=== PATIENT | female | born 1950 | race Caucasian/White ===

== ENCOUNTER 2020-04-18 10:08 | Inpatient (IN) | payer OTHER ==
[2020-04-17 09:49] VITALS: BMI 34.9
[2020-04-18] MEDS ORDERED: BUPIVACAINE LIPOSOME/PF (EXPAREL) 266 MG/20 ML VIAL ONE (11:03)
[2020-04-18] MEDS ORDERED: MIDAZOLAM HCL 2 MG/2 ML SINGLE DOSE VIAL ONE ×2 (11:10)
[2020-04-18] MEDS ORDERED: BENZOIN/ALOE VERA/STORAX/TOLU 58 ML BOTTLE ONE (11:33)
[2020-04-18] MEDS ORDERED: EPHEDRINE SULFATE/0.9% NACL/PF 50 MG/10 ML SYRINGE NR ONE (12:46)
[2020-04-18] MEDS ORDERED: PROPOFOL 20 ML ONE ×3 (13:12→14:42)
[2020-04-18] MEDS ORDERED: VANCOMYCIN 1,000 MG VIAL (RESTRICTED TO ID ONLY) ONE (15:06)
[2020-04-18] MEDS ORDERED: ceFAZolin SODIUM 1 GM VIAL ONE ×3 (15:07)
[2020-04-18] MEDS ORDERED: DEXAMETHASONE SOD PHOSPHATE 4 MG/1 ML VIAL ONE (15:26)
[2020-04-18] MEDS ORDERED: ONDANSETRON 4 MG/2 ML VIAL ONE (15:26)
[2020-04-18] MEDS ORDERED: TRANEXAMIC ACID 1000 MG/10 ML VIAL ONE ×2 (15:26)
[2020-04-18] MEDS ORDERED: MAGNESIUM HYDROX 2400MG/30ML ORAL SUSPENSION 30 ML CUP PO PRN (15:49)
[2020-04-18] MEDS ORDERED: IBUPROFEN 400 MG TABLET (FP) PO PRN (15:57)
[2020-04-18] MEDS ORDERED: oxyCODONE HCL 5 MG TABLET PO PRN (15:57)
[2020-04-18] MEDS ORDERED: HYDROmorphone HCL 0.5 MG/0.5 ML SYRINGE ONE ×2 (15:58→16:47)
[2020-04-18] MEDS ORDERED: LACTATED RINGERS SOLUTION 1,000 ML IV SCH (16:00)
[2020-04-18] MEDS: HYDROmorphone HCL CARPU-JECT 1 MG/1 ML DISP.SYRIN IVPUSH PRN ×2 (16:03→16:50)
[2020-04-18] MEDS: ONDANSETRON 4 MG/2 ML VIAL IVPUSH PRN ×2 (16:04→21:58)
[2020-04-18] MEDS ORDERED: ACETAMINOPHEN INJECTION 100 ML IVPB ONE (16:18)
[2020-04-18] MEDS: HYDROmorphone HCl 2 MG/ML VIAL IVPUSH PRN ×2 (16:20→17:00)
[2020-04-18] MEDS ORDERED: ACETAMINOPHEN 1000 MG/100 ML VIAL (NON FORMULARY) IVPB ONE ×2 (16:25)
[2020-04-18] MEDS: oxyCODONE HCL 5 MG TABLET PO PRN ×2 (18:39→21:44)
[2020-04-18] MEDS: ACETAMINOPHEN 500 MG TABLET (FP) PO PRN (19:33)
[2020-04-18] MEDS: lamoTRIgine 100 MG TABLET PO SCH (21:44)
[2020-04-18] MEDS: CEFAZOLIN 2 GM/D5W 2 GM/50 ML ML IVPB SCH (21:44)
[2020-04-18] MEDS: ASPIRIN COATED 81 MG TABLET.EC PO SCH (21:44)
[2020-04-18] MEDS: SERTRALINE HCL 50 MG TABLET (FP) PO SCH (21:44)
[2020-04-18] MEDS: SENNOSIDES/DOCUSATE COMBO (SENNA PLUS) TABLET (UD) PO SCH (21:44)
[2020-04-18] MEDS ORDERED: HYDROmorphone HCl 2 MG/ML VIAL IVPB ONE (23:00)
[2020-04-19] MEDS: oxyCODONE HCL 5 MG TABLET PO PRN ×5 (02:08→16:32)
[2020-04-19] MEDS: CEFAZOLIN 2 GM/D5W 2 GM/50 ML ML IVPB SCH ×2 (03:07→09:36)
[2020-04-19] MEDS: ACETAMINOPHEN 500 MG TABLET (FP) PO PRN (06:50)
[2020-04-19 07:38] LABS: HEMATOCRIT 38.5 % (32.4-45.2); HEMOGLOBIN 12.5 GM/dl (10.7-15.3); MCH 26.5 pg (25.7-33.7); MCHC 32.6 g/dl (32.0-36.0); MEAN CELL VOLUME 81.3 fl (80-96); PLATELET COUNT 206 K/MM3 (134-434); RBC 4.73 M/mm3 (3.60-5.2); RDW 13.8 % (11.6-15.6); WHITE BLOOD COUNT 6.8 K/mm3 (4.0-10.8)
[2020-04-19 07:50] LABS: CALCIUM 8.7 mg/dl (8.5-10); CREATININE 0.9 mg/dl (0.55-1.3); POTASSIUM 3.8 mmol/L (3.5-5.1)
[2020-04-19] MEDS: CELECOXIB 200 MG CAPSULE PO SCH (09:36)
[2020-04-19] MEDS: HYDROCHLOROTHIAZIDE 25 MG TABLET (FP) PO SCH (09:36)
[2020-04-19] MEDS: ASPIRIN COATED 81 MG TABLET.EC PO SCH ×2 (09:36→21:41)
[2020-04-19] MEDS: PANTOPRAZOLE 40 MG TABLET PO SCH (10:07)
[2020-04-19] MEDS: metoPROLOL SUCCINATE 25 MG TAB.SR.24H (FP) PO SCH (10:07)
[2020-04-19] MEDS: SENNOSIDES/DOCUSATE COMBO (SENNA PLUS) TABLET (UD) PO SCH ×2 (10:07→21:41)
[2020-04-19] MEDS ORDERED: ACETAMINOPHEN 1000 MG/100 ML VIAL (NON FORMULARY) IVPB ONE (12:30)
[2020-04-19] MEDS ORDERED: ACETAMINOPHEN 1000 MG/100 ML VIAL (NON FORMULARY) IVPB PRN (18:14)
[2020-04-19] MEDS: ZOLPIDEM TARTRATE 5 MG TABLET PO PRN (21:41)
[2020-04-19] MEDS: lamoTRIgine 100 MG TABLET PO SCH (21:41)
[2020-04-19] MEDS: SERTRALINE HCL 50 MG TABLET (FP) PO SCH (21:41)
[2020-04-19] MEDS: KETOROLAC TROMETHAMINE 30 MG/1 ML VIAL IVPB PRN (22:19)
[2020-04-20] MEDS: oxyCODONE HCL 5 MG TABLET PO PRN ×3 (00:16→23:07)
[2020-04-20 07:39] LABS: HEMATOCRIT 36.7 % (32.4-45.2); HEMOGLOBIN 11.3 GM/dl (10.7-15.3); MCH 25.8 pg (25.7-33.7); MCHC 30.9 g/dl (32.0-36.0); MEAN CELL VOLUME 83.4 fl (80-96); MEAN PLT VOLUME 7.9 fl (7.5-11.1); PLATELET COUNT 193 K/MM3 (134-434); WHITE BLOOD COUNT 6.7 K/mm3 (4.0-10.8)
[2020-04-20] MEDS: KETOROLAC TROMETHAMINE 30 MG/1 ML VIAL IVPB PRN ×2 (09:51→17:37)
[2020-04-20] MEDS: CELECOXIB 200 MG CAPSULE PO SCH (09:53)
[2020-04-20] MEDS: SENNOSIDES/DOCUSATE COMBO (SENNA PLUS) TABLET (UD) PO SCH ×2 (09:53→21:19)
[2020-04-20] MEDS: ASPIRIN COATED 81 MG TABLET.EC PO SCH ×2 (09:53→21:19)
[2020-04-20] MEDS: PANTOPRAZOLE 40 MG TABLET PO SCH (09:54)
[2020-04-20] MEDS: HYDROCHLOROTHIAZIDE 25 MG TABLET (FP) PO SCH (09:55)
[2020-04-20] MEDS: metoPROLOL SUCCINATE 25 MG TAB.SR.24H (FP) PO SCH (09:55)
[2020-04-20] MEDS: ONDANSETRON 4 MG/2 ML VIAL IVPUSH PRN (18:47)
[2020-04-20] MEDS: lamoTRIgine 100 MG TABLET PO SCH (21:19)
[2020-04-20] MEDS: SERTRALINE HCL 50 MG TABLET (FP) PO SCH (21:19)
[2020-04-20] MEDS: MAG HYDROX/AL HYDROX/SIMETH 30 ML UNIT-DOSE CUP PO PRN (21:41)
[2020-04-20] MEDS: ZOLPIDEM TARTRATE 5 MG TABLET PO PRN (23:13)
[2020-04-21] MEDS: KETOROLAC TROMETHAMINE 30 MG/1 ML VIAL IVPB PRN ×2 (01:10→09:49)
[2020-04-21] MEDS: ONDANSETRON 4 MG/2 ML VIAL IVPUSH PRN (08:28)
[2020-04-21] MEDS: MAG HYDROX/AL HYDROX/SIMETH 30 ML UNIT-DOSE CUP PO PRN (08:28)
[2020-04-21] MEDS: ASPIRIN COATED 81 MG TABLET.EC PO SCH (09:50)
[2020-04-21] MEDS: CELECOXIB 200 MG CAPSULE PO SCH (09:50)
[2020-04-21] MEDS: metoPROLOL SUCCINATE 25 MG TAB.SR.24H (FP) PO SCH (09:53)
[2020-04-21] MEDS: HYDROCHLOROTHIAZIDE 25 MG TABLET (FP) PO SCH (09:53)
[2020-04-21] MEDS: SENNOSIDES/DOCUSATE COMBO (SENNA PLUS) TABLET (UD) PO SCH (09:55)
[2020-04-21] MEDS: PANTOPRAZOLE 40 MG TABLET PO SCH (09:55)
[2020-04-21 12:11] VITALS: BP 112/62; PULSE 85; TEMP 98.6
[2020-04-21] MEDS: oxyCODONE HCL 5 MG TABLET PO PRN (13:24)
== END 2020-04-21 13:48 | disposition home or self-care (01) | DRG 470 ==
LOC: FM/S 10:08
PROVIDERS: ADMIT Orthopaedic Surgery Orthopaedic Surgery of the Spine; ATTEND Orthopaedic Surgery Orthopaedic Surgery of the Spine
PROC: 0SRD0J9 Replacement of Left Knee Joint with Synthetic Substitute, Cemented, Open Approach (ICD-10-PCS; principal; 2020-04-18 13:00)
DX: M17.12 Unilateral primary osteoarthritis, left knee (principal); I10 Essential (primary) hypertension; E78.5 Hyperlipidemia, unspecified; K21.9 Gastro-esophageal reflux disease without esophagitis; F41.8 Other specified anxiety disorders
CPT/HCPCS: 36415; 73560-TC-LT-FY; 80048; 85027; 86850; 86900; 86901; 88304-TC; 88311-TC; 94760; 97010-GP; 97116-GP; 97163-GP; J0131

== ENCOUNTER 2020-08-08 08:00 | Inpatient (IN) | payer OTHER ==
[2020-08-10 15:50] VITALS: BMI 34.9
[2020-08-15] MEDS ORDERED: LOCK ITEM NR ONE ×2 (06:33→22:08)
[2020-08-15] MEDS ORDERED: MIDAZOLAM HCL 2 MG/2 ML SINGLE DOSE VIAL ONE (07:08)
[2020-08-15] MEDS ORDERED: BUPIVACAINE LIPOSOME/PF (EXPAREL) 266 MG/20 ML VIAL ONE (07:09)
[2020-08-15] MEDS ORDERED: SODIUM CHLORIDE 0.9% P/F 10 ML VIAL IJ ONE (07:09)
[2020-08-15] MEDS ORDERED: ePHEDrine SULFATE 50 MG/1 ML AMPULE ONE (07:55)
[2020-08-15] MEDS ORDERED: PROPOFOL 20 ML ONE ×5 (07:56→10:24)
[2020-08-15] MEDS ORDERED: EPHEDRINE SULFATE/0.9% NACL/PF 50 MG/10 ML SYRINGE NR ONE (08:32)
[2020-08-15] MEDS ORDERED: BENZOIN/ALOE VERA/STORAX/TOLU 58 ML BOTTLE ONE (10:32)
[2020-08-15] MEDS ORDERED: MAG HYDROX/AL HYDROX/SIMETH 30 ML UNIT-DOSE CUP PO PRN (11:27)
[2020-08-15] MEDS ORDERED: MAGNESIUM HYDROX 2400MG/30ML ORAL SUSPENSION 30 ML CUP PO PRN (11:27)
[2020-08-15] MEDS ORDERED: ONDANSETRON 4 MG/2 ML VIAL IVPUSH PRN (11:27)
[2020-08-15] MEDS ORDERED: LACTATED RINGERS SOLUTION 1,000 ML IV SCH (11:30)
[2020-08-15] MEDS ORDERED: HYDROmorphone HCL CARPU-JECT 1 MG/1 ML DISP.SYRIN IVPUSH PRN (11:33)
[2020-08-15] MEDS ORDERED: oxyCODONE HCL 5 MG TABLET PO PRN ×2 (11:33→21:43)
[2020-08-15] MEDS: ACETAMINOPHEN 1000 MG/100 ML VIAL (NON FORMULARY) IVPB ONE (11:40)
[2020-08-15] MEDS ORDERED: HYDROmorphone HCL/PF 1 MG/ML VIAL IVPUSH ONE (12:15)
[2020-08-15] MEDS ORDERED: diazePAM CARPU-JECT 10 MG/2 ML DISP.SYRIN ONE (12:23)
[2020-08-15] MEDS: diazePAM CARPU-JECT 10 MG/2 ML DISP.SYRIN IVPUSH ONE (12:28)
[2020-08-15] MEDS: oxyCODONE HCL 5 MG TABLET PO PRN ×3 (15:07→21:30)
[2020-08-15] MEDS ORDERED: ACETAMINOPHEN WITH CODEINE 300MG/30MG TABLET PO PRN (15:08)
[2020-08-15] MEDS: CEFAZOLIN 2 GM/D5W 2 GM/50 ML ML IVPB SCH (17:14)
[2020-08-15] MEDS ORDERED: ACETAMINOPHEN INJECTION 100 ML IVPB ONE (17:21)
[2020-08-15] MEDS ORDERED: ACETAMINOPHEN 1000 MG/100 ML VIAL (NON FORMULARY) IVPB ONE ×2 (17:25→17:30)
[2020-08-15] MEDS: ACETAMINOPHEN 325 MG TABLET (FP) PO SCH (17:26)
[2020-08-15] MEDS: ASPIRIN COATED 81 MG TABLET.EC PO SCH (21:43)
[2020-08-15] MEDS: SENNOSIDES/DOCUSATE COMBO (SENNA PLUS) TABLET (UD) PO SCH (21:43)
[2020-08-15] MEDS: SERTRALINE HCL 50 MG TABLET (FP) PO SCH (21:43)
[2020-08-15] MEDS: lamoTRIgine 100 MG TABLET PO SCH (21:44)
[2020-08-15] MEDS ORDERED: PATIENT'S OWN MEDICATION (NON-FORMULARY) (Zolpidem Tartrate [Ambien] 10 MG Tablet) PO SCH (22:00)
[2020-08-15] MEDS ORDERED: PATIENT'S OWN MEDICATION (NON-FORMULARY) (Sertraline Hcl [Sertraline Hcl] 100 MG Tablet) PO SCH (22:00)
[2020-08-15] MEDS: oxyCODONE HCL 10 MG SUSTAINED ACTING TABLET PO SCH (22:19)
[2020-08-15] MEDS: ZOLPIDEM TARTRATE 5 MG TABLET PO PRN (22:21)
[2020-08-16] MEDS: oxyCODONE HCL 5 MG TABLET PO PRN ×4 (00:34→15:01)
[2020-08-16] MEDS: ACETAMINOPHEN 325 MG TABLET (FP) PO SCH ×5 (05:53→23:43)
[2020-08-16] MEDS: CEFAZOLIN 2 GM/D5W 2 GM/50 ML ML IVPB SCH ×2 (05:54)
[2020-08-16 08:17] LABS: CALCIUM 8.5 mg/dl (8.5-10); CREATININE 0.7 mg/dl (0.55-1.3)
[2020-08-16 08:27] LABS: HEMATOCRIT 37.3 % (32.4-45.2); HEMOGLOBIN 12.2 GM/dl (10.7-15.3); MCH 26.2 pg (25.7-33.7); MCHC 32.7 g/dl (32.0-36.0); MEAN CELL VOLUME 80.1 fl (80-96); MEAN PLT VOLUME 7.8 fl (7.5-11.1); PLATELET COUNT 241 K/MM3 (134-434); RBC 4.66 M/mm3 (3.60-5.2); RDW 13.4 % (11.6-15.6)
[2020-08-16] MEDS ORDERED: PANTOPRAZOLE 40 MG TABLET PO SCH (10:00)
[2020-08-16] MEDS: CELECOXIB 200 MG CAPSULE PO SCH (10:47)
[2020-08-16] MEDS: ASPIRIN COATED 81 MG TABLET.EC PO SCH ×2 (10:47→21:26)
[2020-08-16] MEDS: PANTOPRAZOLE 40 MG TABLET PO SCH (10:48)
[2020-08-16] MEDS: metoPROLOL SUCCINATE 25 MG TAB.SR.24H (FP) PO SCH (10:48)
[2020-08-16] MEDS: HYDROCHLOROTHIAZIDE 25 MG TABLET (FP) PO SCH (10:48)
[2020-08-16] MEDS: SENNOSIDES/DOCUSATE COMBO (SENNA PLUS) TABLET (UD) PO SCH ×2 (10:48→21:27)
[2020-08-16] MEDS: oxyCODONE HCL 10 MG SUSTAINED ACTING TABLET PO SCH ×2 (10:52→21:27)
[2020-08-16] MEDS ORDERED: KETOROLAC TROMETHAMINE 30 MG/1 ML VIAL IVPUSH ONE (18:00)
[2020-08-16] MEDS: diazePAM CARPU-JECT 10 MG/2 ML DISP.SYRIN IVPUSH ONE (19:27)
[2020-08-16] MEDS: ACETAMINOPHEN 1000 MG/100 ML VIAL (NON FORMULARY) IVPB ONE (19:27)
[2020-08-16] MEDS: SERTRALINE HCL 50 MG TABLET (FP) PO SCH (21:26)
[2020-08-16] MEDS: lamoTRIgine 100 MG TABLET PO SCH (21:26)
[2020-08-16] MEDS: ZOLPIDEM TARTRATE 5 MG TABLET PO PRN (23:42)
[2020-08-17] MEDS: ACETAMINOPHEN 325 MG TABLET (FP) PO SCH ×3 (05:54→18:33)
[2020-08-17] MEDS: oxyCODONE HCL 5 MG TABLET PO PRN ×2 (05:55→09:21)
[2020-08-17 07:55] LABS: HEMATOCRIT 32.9 % (32.4-45.2); HEMOGLOBIN 10.5 GM/dl (10.7-15.3); MCH 26.3 pg (25.7-33.7); PLATELET COUNT 193 K/MM3 (134-434); RBC 4.01 M/mm3 (3.60-5.2); RDW 13.8 % (11.6-15.6); WHITE BLOOD COUNT 6.9 K/mm3 (4.0-10.8)
[2020-08-17] MEDS: SENNOSIDES/DOCUSATE COMBO (SENNA PLUS) TABLET (UD) PO SCH ×2 (09:18→21:04)
[2020-08-17] MEDS: ASPIRIN COATED 81 MG TABLET.EC PO SCH ×2 (09:18→21:03)
[2020-08-17] MEDS: CELECOXIB 200 MG CAPSULE PO SCH (09:19)
[2020-08-17] MEDS: PANTOPRAZOLE 40 MG TABLET PO SCH (09:19)
[2020-08-17] MEDS: metoPROLOL SUCCINATE 25 MG TAB.SR.24H (FP) PO SCH (09:24)
[2020-08-17] MEDS: oxyCODONE HCL 10 MG SUSTAINED ACTING TABLET PO SCH ×2 (09:24→21:02)
[2020-08-17] MEDS: HYDROCHLOROTHIAZIDE 25 MG TABLET (FP) PO SCH (09:24)
[2020-08-17] MEDS ORDERED: KETOROLAC TROMETHAMINE 30 MG/1 ML VIAL IVPUSH ONE (12:00)
[2020-08-17] MEDS: SERTRALINE HCL 50 MG TABLET (FP) PO SCH (21:03)
[2020-08-17] MEDS: lamoTRIgine 100 MG TABLET PO SCH (21:04)
[2020-08-17] MEDS ORDERED: KETOROLAC TROMETHAMINE 15 MG/ML VIAL IVPUSH ONE (22:00)
[2020-08-17] MEDS: ZOLPIDEM TARTRATE 5 MG TABLET PO PRN (22:54)
[2020-08-18] MEDS: ACETAMINOPHEN 325 MG TABLET (FP) PO SCH ×3 (00:21→12:18)
[2020-08-18] MEDS ORDERED: KETOROLAC TROMETHAMINE 15 MG/ML VIAL IVPUSH ONE (03:30)
[2020-08-18] MEDS: oxyCODONE HCL 5 MG TABLET PO PRN ×2 (07:56→15:58)
[2020-08-18] MEDS: oxyCODONE HCL 10 MG SUSTAINED ACTING TABLET PO SCH (09:00)
[2020-08-18] MEDS ORDERED: KETOROLAC TROMETHAMINE 15 MG/ML VIAL IM ONE (11:07)
[2020-08-18] MEDS: SENNOSIDES/DOCUSATE COMBO (SENNA PLUS) TABLET (UD) PO SCH (11:21)
[2020-08-18] MEDS: CELECOXIB 200 MG CAPSULE PO SCH (11:21)
[2020-08-18] MEDS: PANTOPRAZOLE 40 MG TABLET PO SCH (11:22)
[2020-08-18] MEDS: HYDROCHLOROTHIAZIDE 25 MG TABLET (FP) PO SCH (11:22)
[2020-08-18] MEDS: metoPROLOL SUCCINATE 25 MG TAB.SR.24H (FP) PO SCH (11:22)
[2020-08-18] MEDS: ASPIRIN COATED 81 MG TABLET.EC PO SCH (11:25)
[2020-08-18 14:07] VITALS: BP 99/47; PULSE 64; TEMP 98.6
== END 2020-08-18 17:54 | disposition home or self-care (01) | DRG 470 ==
LOC: FM/S 08-15 06:05
PROVIDERS: ADMIT Orthopaedic Surgery Orthopaedic Surgery of the Spine; ATTEND Orthopaedic Surgery Orthopaedic Surgery of the Spine
PROC: 0QBG4ZZ Excision of Right Tibia, Percutaneous Endoscopic Approach (ICD-10-PCS; 2020-08-15)
PROC: 0SRC069 Replacement of Right Knee Joint with Oxidized Zirconium on Polyethylene Synthetic Substitute, Cemented, Open Approach (ICD-10-PCS; principal; 2020-08-15 08:16)
DX: D49.2 Neoplasm of unspecified behavior of bone, soft tissue, and skin (principal); M17.11 Unilateral primary osteoarthritis, right knee; I10 Essential (primary) hypertension; E78.5 Hyperlipidemia, unspecified; K21.9 Gastro-esophageal reflux disease without esophagitis; F41.8 Other specified anxiety disorders
CPT/HCPCS: 36415; 73560-TC-RT-FY; 80048; 85027; 87070; 87075; 87102; 87116; 87205; 87206; 87210; 88305-TC; 88307-TC; 88311-TC; 88331-TC; 93971-TC; 94760; 97010-GP; 97116-GP; 97162-GP; J0131